=== PATIENT | male | born 1945 | race Caucasian/White ===

== ENCOUNTER 2019-03-22 21:46 | Emergency (ER) | payer MEDICARE, OTHER ==
[2019-03-23] MEDS: IBUPROFEN 600 MG TAB PO (00:07)
== END 2019-03-23 00:20 | disposition home or self-care (01) ==
LOC: E/R 03-23 00:20
DX: I10 Essential (primary) hypertension (principal); I25.10 Atherosclerotic heart disease of native coronary artery without angina pectoris; I25.2 Old myocardial infarction; E11.9 Type 2 diabetes mellitus without complications; G44.209 Tension-type headache, unspecified, not intractable; E66.9 Obesity, unspecified; Z79.01 Long term (current) use of anticoagulants; Z79.84 Long term (current) use of oral hypoglycemic drugs; Z79.82 Long term (current) use of aspirin; Z98.61 Coronary angioplasty status; Z68.43 Body mass index [BMI] 50.0-59.9, adult
CPT/HCPCS: 70450; 82962; 93005; 99284-25